=== PATIENT | male | born 1990 | race Two or more races ===

== ENCOUNTER 2021-02-18 19:44 | Emergency (ER) | payer SELFPAY ==
[~2021-02-18] VITALS: Ht 185.4 cm; Wt 84.0 kg
[2021-02-18 19:52] VITALS: BP 134/54
[2021-02-18 20:40] LABS: CLARITY URINE CLEAR (CLEAR); COLOR URINE YELLOW (YELLOW); KETONES URINE NEGATIVE (NEGATIVE); LEUKOCYTE ESTERASE URINE NEGATIVE (NEGATIVE); NITRITE URINE NEGATIVE (NEGATIVE); OCCULT BLOOD URINE NEGATIVE (NEGATIVE); PROTEIN URINE NEGATIVE (NEGATIVE); SPECIFIC GRAVITY URINE 1.017 (1.005-1.030); UROBILINOGEN URINE 0.2 E.U./dL (0.2-1.0)
[2021-02-21 04:07] LABS: NEISSERIA GONORRHOEAE NAA Negative (Negative)
== END 2021-02-19 02:29 | disposition left against medical advice (07) ==
LOC: ER 19:44
DX: R10.32 Left lower quadrant pain (principal)
CPT/HCPCS: 81003; 87491; 87591; 99283

== ENCOUNTER 2021-02-22 17:07 | Emergency (ER) | payer OTHER ==
[~2021-02-22] VITALS: Ht 185.4 cm; Wt 82.0 kg
[2021-02-22 17:23] VITALS: BP 142/87
== END 2021-02-22 22:50 | disposition left against medical advice (07) ==
LOC: ER 17:07
DX: Z53.21 Procedure and treatment not carried out due to patient leaving prior to being seen by health care provider (principal)